=== PATIENT | female | born 1980 | race Caucasian/White ===

== ENCOUNTER → 2017-10-05 15:44 | Outpatient (CLI) | payer BC, SELFPAY | PROVIDERS: Family Provider Family Medicine; PCP Family Medicine; Visit Provider Otolaryngology Otolaryngology/Facial Plastic Surgery | DX: J02.9 Acute pharyngitis, unspecified (principal) | CPT/HCPCS: 87070 ==

== ENCOUNTER 2017-10-12 12:40 | Emergency (ER) | payer OTHER, BC, SELFPAY ==
[2017-10-12 12:41] VITALS: BP 151/87; PULSE 68; RESP 16; TEMP 36.9; O2SAT 99; BMI 28.4
--- NOTE | 2017-10-12 13:35 | RAD_ITS ---
STUDY: X-RAY - RIGHT ANKLE REASON FOR EXAM: Female, 36 years old. Pain following a fall. TECHNIQUE: 3 view(s) of the ankle. COMPARISON: None. FINDINGS: Normal visualized distal tibia and fibula. Normal medial and lateral malleoli. Normal tibiotalar articulation and ankle mortise. Normal visualized talus and calcaneus. The visualized subtalar, talonavicular, calcaneocuboid and tarsal articulations are normal. Lateral soft tissue swelling. Small ankle joint effusion. RAD/Ankle min 3 Views IMPRESSION: Lateral soft tissue swelling. Small joint effusion.. Electronically Signed: Jah Downing MD at 14:02 EST Tel [phone], Service support ,
--- NOTE | 2017-10-12 14:24 | ED.VISSUMM ---
- ER Visit Summary Date of Service: 10/12/17 Chief Complaint: Right ankle injury History of Present Illness: The patient is a 36 F who was walking on the steps when she missed a step and inverted her right ankle. She did not fall to the ground. She has been able to bear weight but only limited partial weightbearing and it is painful. No other injuries. She denies any paresthesias weakness or loss of function. Physical Examination: Afebrile vitals are stable Heart regular rate and rhythm Lungs are clear There is soft tissue swelling of the lateral right ankle she does not have any focal bony tenderness there is no deformity she has brisk capillary refill and normal sensation to light touch normal motor function with active full range of motion Test Results: Ankle x-ray shows soft tissue swelling and a small effusion but no fracture Emergency Department Course and Treatment: She was given an Aircast and crutches she was advised on rest ice and elevation. She was given a prescription for a short course of [place] for acute pain control. She understands return for new or worsening symptoms. She will follow-up with corporate care. She was discharged. Treatment Plan: [] Disposition: Discharge Impression: Acute right ankle sprain This note was generated with [employer] dictation software. It may contain incorrect words, spelling, and punctuation that were not noted in review of the chart prior to signing ED Disposition - Plan for ED Patient: Chief Complaint: Lower Extremity Injury Referrals: Yvon Bryson III, MD [Primary Care Provider] -
--- NOTE | 2017-10-12 14:26 | ED.DEP ---
ED Disposition - Plan for ED Patient: Chief Complaint: Lower Extremity Injury Instructions: ED Sprain Ankle W X Ray Prescriptions: Hydrocodone Bitart/Apap 5-325 [[place] 5/325] 1 - 2 tab PO Q6H PRN 3 Days #12 tab PRN Reason: Pain Referrals: Yvon Bryson III, MD [Primary Care Provider] -
--- NOTE | 2017-10-12 14:31 | DCINST.ED_ITS ---
ED Disposition - Plan for ED Patient: Chief Complaint: Lower Extremity Injury Instructions: ED Sprain Ankle W X Ray Prescriptions: Hydrocodone Bitart/Apap 5-325 [[place] 5/325] 1 - 2 tab PO Q6H PRN 3 Days #12 tab PRN Reason: Pain Referrals: Yvon Bryson III, MD [Primary Care Provider] - [facility] [GROUP OF PHYSICIANS] -
== END 2017-10-12 14:52 | disposition home or self-care (01) ==
PROVIDERS: Emergency Provider Emergency Medicine; Family Provider Family Medicine; PCP Family Medicine
DX: S93.401A Sprain of unspecified ligament of right ankle, initial encounter (principal); X50.1XXA Overexertion from prolonged static or awkward postures, initial encounter; Y93.01 Activity, walking, marching and hiking
CPT/HCPCS: 73610; 99284

== ENCOUNTER → 2020-12-17 12:41 | Outpatient (CLI) | payer BC, SELFPAY ==
--- NOTE | 2020-12-17 12:44 | CT_ITS ---
STUDY: CT LEFT KNEE WITHOUT CONTRAST REASON FOR EXAM: Female, 40 years old. UNILATERAL PRIMARY OSTEOARTHRITIS, L KNEE. One and half year history of pain. RADIATION DOSAGE (If Supplied By Facility): CTDIvol = ( 15.35 ) mGy, DLP = ( 1176.42 ) mGycm TECHNIQUE: Transaxial CT imaging of the knee was performed. Coronal and sagittal images were reformatted. Individualized dose optimization techniques were used for this CT. COMPARISON: None. FINDINGS: Normal medial femoral condyle and medial tibial plateau. There is preservation of the articular joint space of the medial knee compartment. Normal lateral femoral condyle and lateral tibial plateau. There is preservation of the articular joint space of the lateral knee compartment. Normal proximal tibiofibular articulation. There is no joint effusion. The quadriceps tendon is grossly normal. The patellar tendon is grossly normal. Normal Hoffa''s fat pad. The soft tissues are unremarkable. CT/Extremity Lower without Contra IMPRESSION: Normal CT of the knee. Electronically Signed: Jah Downing MD at 15:18 EDT , Service support ,
== END ==
PROVIDERS: PCP Student in an Organized Health Care Education/Training Program; Referring Provider Orthopaedic Surgery; Visit Provider Orthopaedic Surgery
DX: M17.12 Unilateral primary osteoarthritis, left knee (principal)
CPT/HCPCS: 73700

== ENCOUNTER → 2020-12-27 13:42 | Outpatient (CLI) | payer BC, SELFPAY ==
[2020-12-27 15:24] LABS: Ferritin 89 ng/mL (8-252)
== END ==
PROVIDERS: PCP Student in an Organized Health Care Education/Training Program; Referring Provider Physician Assistant Medical; Visit Provider Physician Assistant Medical
DX: L65.9 Nonscarring hair loss, unspecified (principal); D22.9 Melanocytic nevi, unspecified
CPT/HCPCS: 36415; 82728